=== PATIENT | male | born 1970 | race Caucasian/White ===

== ENCOUNTER 2017-09-01 08:52 | Emergency (ER) | payer OTHER ==
[~2017-09-01] VITALS: Ht 175.3 cm; Wt 99.8 kg
[~2017-09-01 08:52] MED LIST: ULTRAM50 MG PO
[2017-09-01 10:08] LABS: HEMATOCRIT 42.7 % (38.0-50.0); MCH 30.2 PG (29.0-34.0); MCHC 34.7 G/DL (30.0-36.0); MCV 87.1 FL (86-99); PLATELET COUNT 359 K/uL (156-360); RBC DIS.WIDTH-CV 11.9 % (11.8-14.6); RBC DIS.WIDTH-SD 38.5 % (39-53); WHITE BLOOD COUNT 10.2 K/uL (4.1-10.2)
[2017-09-01 10:16] LABS: CHLORIDE 98 mEq/L (99-109); SODIUM 132 mEq/L (136-147)
[2017-09-01 10:18] LABS: GLUCOSE 361 mg/dL (70-99)
[2017-09-01 10:19] LABS: ANION GAP 12 MEQ/L (2-14)
[2017-09-01 10:22] LABS: GFR ESTIMATE (CALCULATED) > 59 mL/min/
[2017-09-01 10:23] LABS: UREA NITROGEN (BUN) 8 mg/dL (9-23)
[2017-09-01] MEDS ORDERED: TESSALON PERLE100 MG PO (10:50)
[2017-09-01] MEDS ORDERED: VENTOLIN HFA18 GM IH (10:50)
[2017-09-01] MEDS ORDERED: PREDNISONE20 MG PO (11:22)
[2017-09-01 11:29] VITALS: BP 130/80
== END 2017-09-01 11:30 | disposition home or self-care (01) ==
LOC: EME 08:52
DX: J06.9 Acute upper respiratory infection, unspecified (principal); E11.9 Type 2 diabetes mellitus without complications; Z79.84 Long term (current) use of oral hypoglycemic drugs
CPT/HCPCS: 71020; 80048; 85027; 94640; 99281; 99284